=== PATIENT | female | born 2000 | race Caucasian/White ===

== ENCOUNTER 2022-07-09 20:43 | Emergency (ER) | payer BC ==
[~2022-07-09] VITALS: Ht 172.7 cm; Wt 77.1 kg
[2022-07-10] MEDS ORDERED: LEVSIN/SL0.125 MG SL (05:51)
[2022-07-10] MEDS ORDERED: PEPCID40 MG PO (05:51)
== END 2022-07-10 06:30 ==
LOC: ER 20:43 → EMR PED 20:55 → ER 20:55
DX: R10.2 Pelvic and perineal pain (principal); R11.10 Vomiting, unspecified; Z20.822 Contact with and (suspected) exposure to COVID-19